=== PATIENT | female | born 1985 | race African-American/Black ===

== ENCOUNTER 2020-05-11 14:15 | Emergency (ER) | payer OTHER, SELFPAY ==
--- NOTE | ~2020-05-11 | XR_ITS ---
XR chest 2V DATE: 05/11/2020 14:54 INDICATION: Left upper chest pain radiating posteriorly TECHNIQUE: PA and lateral views COMPARISON: 08/26/2018 PA and lateral chest FINDINGS: Normal heart size. No hilar or mediastinal enlargement. No pulmonary infiltrate or consolid ation, pleural effusion or pulmonary vascular congestion or pneumothorax. IMPRESSION: No active cardiopulmonary disease Reviewed, dictated and finalized at location A.
--- NOTE | 2020-05-11 13:56 | ED.CHESTPAIN ---
HPI - Chest Pain General Chief Complaint: Chest Pain Stated Complaint: CP Source: patient and EMS Mode of arrival: EMS Limitations: no limitations History of Present Illness HPI narrative: Patient is a 35-year-old female with a history of mitral valve prolapse and recurrent chest pain who presents for evaluation of chest pain. Patient states that she has had chest pain present over 24 hours which is very steady and constant in nature. Described as a dull, aching sensation on the left side of her chest with worsens with any movement. She denies current shortness of breath. No fever, cough, congestion. No recent sick contacts. No pain with inspiration. No recent car or air travel. No history of DVT. 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 Patient states that she drank some fluids and that seemed to make her symptoms worse. Patient states that she was worried her asthma was flaring up, thus wanted to come to the emergency department to be evaluated. 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 Related Data Allergies Allergy/AdvReac Type Severity Reaction Status Date / Time Penicillins Allergy Unknown Unknown Verified 05/11/20 14:20 Review of Systems Review of Systems: Narrative: CONSTITUTIONAL: Denies fever HEENT: Denies rhinorrhea, congestion, sore throat CARDIOVASCULAR: Reports left-sided chest pain RESPIRATORY: Denies cough or dyspnea. GASTROINTESTINAL: Denies abdominal pain SKIN: Denies rash MUSCULOSKELETAL: Denies back pain NEUROLOGIC: Denies headache [facility] Past Medical History Medical History Asthma Mitral valve prolapse Social History Social History (Updated 05/11/20 @ 14:31 by Edwige Parmar MD) Smoking status: Never smoker Substance use: never Additional occupation/education comments: [employer] woman Gender identity (if verbalized by the patient): Female Exam Narrative: Exam Narrative: GENERAL: Awake, alert, conversant HEAD: Normocephalic, atraumatic. EYES: PERRLA and EOMI. ENT: Nares clear, no rhinorrhea or epistaxis. Mucous membranes moist. NECK: Supple. CHEST: No respiratory distress, breathing even and non labored, reproducible left-sided chest wall tenderness that exactlycauses pain HEART: Regular rate, sinus rhythm ABDOMEN:Non distended, non tender EXTREMITIES: Normal range of motion. No edema. SKIN: Warm, dry, no rash. NEURO:No focal deficits. Alert and oriented x3 Course Vital Signs Vital signs: Vital Signs Temperature 36.6 C 05/11/20 14:12 Temperature 36.6 C 05/11/20 14:12 Pulse Rate 78 05/11/20 14:21 Respiratory Rate 20 05/11/20 14:21 Blood Pressure 129/83 05/11/20 14:21 Pulse Oximetry 100 05/11/20 14:21 MDM - Chest Pain MDM Narrative Medical decision making narrative: Patient's EKG and labs are without significant high risk changes. Cardiac risk factors reviewed. Patient is felt low risk for ACS and reasonable for further risk stratification testing as an outpatient. Pain was not sudden or maximal or onset without tearing or ripping quality. Pain is also reproducible which makes me find this more consistent with MSK pain. No other signs or symptoms to suggest aortic dissection. A low risk well's criteria is noted, PE is felt to be unlikely and d dimer not critically elevated. No pneumonia seen on evaluation today. Given chest pain since yesterday, and normal initial troponin, pt much outside of four hour window. Pt with mild anemia, chronic for patient. Patient is felt to be a reasonable candidate for continued evaluation as an outpatient. Differential Diagnosis Differential diagnosis: Likely
[2020-05-11 14:12] VITALS: TEMP 36.6
[2020-05-11 14:20] VITALS: PULSE 86
[2020-05-11 14:21] VITALS: BP 129/83; PULSE 78; RESP 20; O2SAT 100
--- NOTE | 2020-05-11 14:21 | ECG_ITS ---
Measurements Intervals [place] Rate: 77 P: 61 WA: 186 QRS: 40 QRSD: 88 T: 32 QT: 373 QTc: 422 Interpretive Statements SINUS RHYTHM NORMAL ECG Electronically Signed On 05-11-2020 14:32:43 CDT by Tj Luna D.O.
[2020-05-11 14:37] LABS: Basophils Percent Auto 0.5 % (0.2-1.2); Eosinophils Absolute Auto 0.3 K/mm3 (0-0.3); Hematocrit 31.8 % (37.0-47.0); Hemoglobin 10.1 g/dL (12.0-15.0); Immature Granulocyte Absolute 0.01 K/mm3 (0.00-0.031); Immature Granulocyte Percent A 0.2 % (0-0.5); Lymphocytes Absolute Auto 2.76 K/mm3 (0.9-3.2); Lymphocytes Percent Auto 42.9 % (18.3-44.2); Mean Corpuscular HGB Conc 31.8 g/dl (32-36); Mean Corpuscular Hemoglobin 26.2 pg (26-34); Mean Corpuscular Volume 82.6 fl (80-100); Mean Platelet Volume 10.5 fl (7.4-10.4); Monocytes Absolute Auto 0.6 K/mm3 (0.1-0.6); Neutrophils Absolute Auto 2.7 K/mm3 (1.3-6.7); Neutrophils Percent Auto 42.4 % (45.5-73.1); Platelet Count Result 284 k/mm3 (150-375); Red Blood Count 3.85 M/mm3 (4.2-5.4); Red Cell Distribution Width 16.9 % (11.5-14.5); White Blood Count 6.4 K/mm3 (4.5-10.0)
[2020-05-11 14:48] LABS: INR 0.9
[2020-05-11 14:49] LABS: Anion Gap 8 mmol/L (8-16); Blood Urea Nitrogen 12 mg/dL (7-17); Calcium 9.2 mg/dL (8.4-10.2); Carbon Dioxide 23 mmol/L (22-30); Chloride 106 mmol/L (98-107); Estimated CRCL calculation 74 ml/min; Estimated Glomerular Filt Rate > 60; Glucose 73 mg/dL (65-105); Partial Thromboplastin Time 25.8 SECONDS (22.3-36.8); Potassium 3.4 mmol/L (3.4-5.0); Sodium 137 mmol/L (137-145)
[2020-05-11 14:51] LABS: D Dimer 0.41 ug/mL (<0.48)
[2020-05-11 15:01] LABS: Troponin I < 0.012 ng/mL (0.000-0.034)
[2020-05-11 15:28] VITALS: BP 125/70; PULSE 80; RESP 18; O2SAT 99
== END 2020-05-11 15:29 | disposition home or self-care (01) ==
PROVIDERS: Emergency Provider Emergency Medicine
DX: R07.89 Other chest pain (principal); M94.0 Chondrocostal junction syndrome [Tietze]; J45.909 Unspecified asthma, uncomplicated; I34.1 Nonrheumatic mitral (valve) prolapse
CPT/HCPCS: 36415; 71046; 80048; 84484; 85025; 85380; 85610; 85730; 93005; 99284

== ENCOUNTER 2020-11-15 13:02 | Outpatient (CLI) | payer OTHER, SELFPAY ==
[2020-11-15 13:44] LABS: Anion Gap 6 mmol/L (8-16); Blood Urea Nitrogen 11 mg/dL (7-17); Calcium 9.5 mg/dL (8.4-10.2); Carbon Dioxide 24 mmol/L (22-30); Chloride 108 mmol/L (98-107); Estimated Glomerular Filt Rate > 60; Glucose 91 mg/dL (65-105); Potassium 3.7 mmol/L (3.4-5.0); Sodium 138 mmol/L (137-145)
== END 2020-11-15 13:03 | disposition home or self-care (01) ==
PROVIDERS: Visit Provider Internal Medicine
DX: R00.2 Palpitations (principal); R55 Syncope and collapse
CPT/HCPCS: 36415; 80048